=== PATIENT | male | born 1960 | race Two or more races ===

== ENCOUNTER 2017-11-25 13:06 | Emergency (ER) | payer MEDICAID ==
[~2017-11-25] VITALS: Ht 180.3 cm; Wt 94.6 kg
[2017-11-25 14:12] LABS: BASOPHILS % (AUTO) 0.3 % (0-1); EOSINOPHILS # (AUTO) 0.3 X10'3 (0-0.9); EOSINOPHILS % (AUTO) 3.8 % (0-6); HEMATOCRIT 49.5 % (42.0-52.0); HEMOGLOBIN 16.4 g/dl (14.0-17.9); LYMPHOCYTES # (AUTO) 2.6 X10'3 (1.1-4.8); LYMPHOCYTES % (AUTO) 32.8 % (21-51); MEAN CORPUSCULAR HEMOGLOBIN 29.8 PG (27.0-31.0); MEAN CORPUSCULAR HGB CONC 33.1 % (33.0-36.5); MEAN CORPUSCULAR VOLUME 90.1 FL (78-98); MEAN PLATELET VOLUME 7.6 FL (7.4-10.4); MONOCYTES # (AUTO) 0.7 X10'3 (0-0.9); MONOCYTES % (AUTO) 8.9 % (2-12); NEUTROPHILS # (AUTO) 4.3 X10'3 (1.8-7.7); NEUTROPHILS % (AUTO) 54.2 % (42-75); PLATELET COUNT 303 X10'3 (140-440); RED BLOOD COUNT 5.49 X10'6 (4.70-6.10); WHITE BLOOD COUNT 7.9 X10'3 (4.5-11.0)
[2017-11-25 14:29] LABS: ALANINE AMINOTRANSFERASE 49 U/L (12-78); ALKALINE PHOSPHATASE 72 IU/L (46-116); ANION GAP 12 (8-16); ASPARTATE AMINO TRANSFERASE 22 U/L (10-37); BILIRUBIN,TOTAL 0.4 MG/DL (0.1-1.0); BLOOD UREA NITROGEN 13 MG/DL (7-18); BUN/CREATININE RATIO 14.1 (5.4-32.0); CALCIUM 9.3 MG/DL (8.5-10.1); CHLORIDE 104 MMOL/L (99-107); CREATININE 0.92 MG/DL (0.60-1.10); GLUCOSE 157 MG/DL (70-104); POTASSIUM 3.9 MMOL/L (3.5-5.1); SODIUM 139 MMOL/L (135-145); TOTAL CARBON DIOXIDE 23.5 MMOL/L (24-32); eGFR 85 ML/MIN
[2017-11-25] MEDS ORDERED: ONDA4TAB9 SL (16:02)
[2017-11-25] MEDS ORDERED: normal saline 1000ML IV soln IVB ONE (16:05)
[2017-11-25] MEDS ORDERED: ondansetron/PF 4mg/2ml inj IV ONE (16:05)
[2017-11-25] MEDS ORDERED: ondansetron 4mg rapidly disintigrating tab PO ONE (16:30)
[2017-11-25 17:24] VITALS: BP 137/92
== END 2017-11-25 17:26 | disposition home or self-care (01) ==
LOC: ER 13:06
DX: A08.4 Viral intestinal infection, unspecified (principal); E86.0 Dehydration; E11.9 Type 2 diabetes mellitus without complications; R10.84 Generalized abdominal pain
CPT/HCPCS: 36415; 80053; 82948; 85025; 96360; 99284; J7030

== ENCOUNTER 2018-05-20 14:34 | Emergency (ER) | payer MEDICAID ==
[~2018-05-20] VITALS: Ht 180.3 cm; Wt 97.0 kg
[2018-05-20 15:26] LABS: BASOPHILS # (AUTO) 0.1 X10'3 (0-0.2); BASOPHILS % (AUTO) 0.6 % (0-1); EOSINOPHILS # (AUTO) 0.5 X10'3 (0-0.9); HEMOGLOBIN 15.4 g/dl (14.0-17.9); LYMPHOCYTES # (AUTO) 3.5 X10'3 (1.1-4.8); MEAN CORPUSCULAR HEMOGLOBIN 31.3 PG (27.0-31.0); MEAN CORPUSCULAR VOLUME 89.5 FL (78-98); MEAN PLATELET VOLUME 7.7 FL (7.4-10.4); MONOCYTES # (AUTO) 0.7 X10'3 (0-0.9); NEUTROPHILS # (AUTO) 3.9 X10'3 (1.8-7.7); NEUTROPHILS % (AUTO) 45.4 % (42-75); PLATELET COUNT 273 X10'3 (140-440); RED BLOOD COUNT 4.92 X10'6 (4.70-6.10); RED CELL DISTRIBUTION WIDTH 12.7 % (11.5-14.5); WHITE BLOOD COUNT 8.7 X10'3 (4.5-11.0)
[2018-05-20 15:31] LABS: PARTIAL THROMBOPLASTIN TIME 25 SECONDS (22-32); PROTHROMBIN TIME 10.3 SECONDS (9.0-12.0)
[2018-05-20 15:32] LABS: ALANINE AMINOTRANSFERASE 26 U/L (12-78); ALBUMIN 3.6 G/DL (3.4-5.0); ALBUMIN/GLOBULIN RATIO 1.1 (1.1-1.5); ALKALINE PHOSPHATASE 72 IU/L (46-116); ANION GAP 9 (8-16); ASPARTATE AMINO TRANSFERASE 13 U/L (10-37); BILIRUBIN,TOTAL 0.3 MG/DL (0.1-1.0); BLOOD UREA NITROGEN 24 MG/DL (7-18); BUN/CREATININE RATIO 22.9 (5.4-32.0); CALCIUM 8.5 MG/DL (8.5-10.1); CHLORIDE 105 MMOL/L (99-107); CREATININE 1.05 MG/DL (0.60-1.10); GLUCOSE 214 MG/DL (70-104); POTASSIUM 3.9 MMOL/L (3.5-5.1); SODIUM 139 MMOL/L (135-145); TOTAL CARBON DIOXIDE 25.3 MMOL/L (24-32); TOTAL PROTEIN 6.9 G/DL (6.4-8.2); eGFR 73 ML/MIN
[2018-05-20 16:02] VITALS: BP 116/70
== END 2018-05-20 16:42 | disposition home or self-care (01) ==
LOC: ER 14:34
DX: R07.89 Other chest pain (principal); F17.200 Nicotine dependence, unspecified, uncomplicated; E11.9 Type 2 diabetes mellitus without complications
CPT/HCPCS: 36415; 71045; 80053; 84484; 85025; 85610; 85730; 93005; 99285

== ENCOUNTER 2018-06-10 22:59 | Emergency (ER) | payer MEDICAID ==
[~2018-06-10] VITALS: Ht 180.3 cm; Wt 97.0 kg
[2018-06-10 23:33] LABS: BASOPHILS # (AUTO) 0.1 X10'3 (0-0.2); BASOPHILS % (AUTO) 0.5 % (0-1); EOSINOPHILS # (AUTO) 0.4 X10'3 (0-0.9); EOSINOPHILS % (AUTO) 3.5 % (0-6); HEMATOCRIT 44.5 % (42.0-52.0); LYMPHOCYTES # (AUTO) 1.5 X10'3 (1.1-4.8); LYMPHOCYTES % (AUTO) 12.2 % (21-51); MEAN CORPUSCULAR HEMOGLOBIN 30.1 PG (27.0-31.0); MEAN CORPUSCULAR HGB CONC 33.6 % (33.0-36.5); MEAN CORPUSCULAR VOLUME 89.6 FL (78-98); MEAN PLATELET VOLUME 7.4 FL (7.4-10.4); MONOCYTES # (AUTO) 0.6 X10'3 (0-0.9); MONOCYTES % (AUTO) 4.5 % (2-12); NEUTROPHILS # (AUTO) 9.9 X10'3 (1.8-7.7); NEUTROPHILS % (AUTO) 79.3 % (42-75); PLATELET COUNT 293 X10'3 (140-440); RED BLOOD COUNT 4.97 X10'6 (4.70-6.10); RED CELL DISTRIBUTION WIDTH 13.6 % (11.5-14.5); WHITE BLOOD COUNT 12.4 X10'3 (4.5-11.0)
[2018-06-10 23:47] LABS: ALANINE AMINOTRANSFERASE 39 U/L (12-78); ALBUMIN 3.6 G/DL (3.4-5.0); ALBUMIN/GLOBULIN RATIO 1.1 (1.1-1.5); ALKALINE PHOSPHATASE 78 IU/L (46-116); ANION GAP 9 (8-16); ASPARTATE AMINO TRANSFERASE 32 U/L (10-37); BILIRUBIN,TOTAL 0.4 MG/DL (0.1-1.0); BLOOD UREA NITROGEN 26 MG/DL (7-18); BUN/CREATININE RATIO 23.2 (5.4-32.0); CHLORIDE 104 MMOL/L (99-107); CREATININE 1.12 MG/DL (0.60-1.10); GLUCOSE 144 MG/DL (70-104); POTASSIUM 4.4 MMOL/L (3.5-5.1); SODIUM 139 MMOL/L (135-145); TOTAL CARBON DIOXIDE 25.8 MMOL/L (24-32); eGFR 68 ML/MIN
[2018-06-10 23:58] LABS: PARTIAL THROMBOPLASTIN TIME 26 SECONDS (22-32)
[2018-06-11] MEDS ORDERED: morphine 10mg/ml inj. IM ONE (00:50)
[2018-06-11] MEDS ORDERED: morphine 4 MG/ML inj SYRINge IM ONE (00:50)
[2018-06-11] MEDS ORDERED: ondansetron/PF 4mg/2ml inj IM ONE (00:50)
[2018-06-11] MEDS ORDERED: ondansetron/PF 4mg/2ml inj IV ONE (01:00)
[2018-06-11] MEDS ORDERED: morphine 4 MG/ML inj SYRINge IV ONE (01:00)
[2018-06-11 02:25] VITALS: BP 115/69
[2018-06-11 02:28] LABS: CLARITY,URINE CLEAR (Clear); COLOR,URINE YELLOW (Yellow); GLUCOSE, URINE NEGATIVE (Neg); KETONES,URINE NEGATIVE (Neg); LEUKOCYTE ESTERASE ,URINE NEGATIVE (Neg); NITRITES, URINE NEGATIVE (Neg); OCCULT BLOOD,URINE NEGATIVE (Neg); PH,URINE 5.5 (4.8-8.0); PROTEIN,URINE NEGATIVE (Neg); UROBILINOGEN,URINE 0.2 E.U/dL (0.2-1.0)
[2018-06-11 02:30] LABS: UA COLLECTION TYPE CLN CATCH MIDSTREAM
[2018-06-11] MEDS ORDERED: IBUP-1986 PO (02:52)
[2018-06-11] MEDS ORDERED: HYDR-4353 PO (02:52)
[2018-06-11] MEDS ORDERED: HYDROcodone/acetaminophen 10/325mg tab PO ONE (02:55)
== END 2018-06-11 03:13 | disposition home or self-care (01) ==
LOC: ER 23:00
DX: M54.5 Low back pain (principal); E11.9 Type 2 diabetes mellitus without complications; F17.200 Nicotine dependence, unspecified, uncomplicated; R07.89 Other chest pain; X50.0XXA Overexertion from strenuous movement or load, initial encounter; Y93.89 Activity, other specified; Y92.89 Other specified places as the place of occurrence of the external cause; Y99.8 Other external cause status
CPT/HCPCS: 36415; 71045; 80053; 81003; 84484; 85025; 85610; 85730; 93005; 96374; 96375; 99285; J2270; J2405

== ENCOUNTER 2018-11-02 20:29 | Emergency (ER) | payer MEDICAID ==
[~2018-11-02] VITALS: Ht 172.7 cm; Wt 104.0 kg
[~2018-11-02 20:29] MED LIST: IBUP-1986 PO
[2018-11-02 20:34] VITALS: BP 157/83
== END 2018-11-02 22:58 | disposition home or self-care (01) ==
LOC: ER 20:30
DX: R06.02 Shortness of breath (principal); R41.0 Disorientation, unspecified; E78.00 Pure hypercholesterolemia, unspecified; E11.9 Type 2 diabetes mellitus without complications
CPT/HCPCS: 71045; 82948; 93005; 99283

== ENCOUNTER 2019-08-09 03:11 | Emergency (ER) | payer MEDICAID ==
[~2019-08-09] VITALS: Ht 180.3 cm; Wt 97.7 kg
[2019-08-09 03:59] VITALS: BP 164/69
[2019-08-09 04:06] LABS: BASOPHILS # (AUTO) 0.1 X10'3 (0-0.2); BASOPHILS % (AUTO) 0.9 % (0-1); EOSINOPHILS # (AUTO) 0.7 X10'3 (0-0.9); EOSINOPHILS % (AUTO) 5.7 % (0-6); HEMATOCRIT 46.2 % (42.0-52.0); HEMOGLOBIN 15.6 g/dl (14.0-17.9); LYMPHOCYTES # (AUTO) 4.7 X10'3 (1.1-4.8); MEAN CORPUSCULAR HEMOGLOBIN 30.6 PG (27.0-31.0); MEAN CORPUSCULAR HGB CONC 33.7 g/dL (33.0-36.5); MEAN CORPUSCULAR VOLUME 90.7 FL (78-98); MEAN PLATELET VOLUME 7.6 FL (7.4-10.4); MONOCYTES # (AUTO) 0.9 X10'3 (0-0.9); MONOCYTES % (AUTO) 7.6 % (2-12); NEUTROPHILS # (AUTO) 5.6 X10'3 (1.8-7.7); NEUTROPHILS % (AUTO) 46.8 % (42-75); PLATELET COUNT 332 X10'3 (140-440); RED CELL DISTRIBUTION WIDTH 12.5 % (11.5-14.5); WHITE BLOOD COUNT 11.9 X10'3 (4.5-11.0)
[2019-08-09 04:16] LABS: ALANINE AMINOTRANSFERASE 31 U/L (12-78); ALBUMIN 3.9 G/DL (3.4-5.0); ALBUMIN/GLOBULIN RATIO 1.1 (1.1-1.5); ALKALINE PHOSPHATASE 86 IU/L (46-116); ANION GAP 10 (8-16); ASPARTATE AMINO TRANSFERASE 15 U/L (10-37); BILIRUBIN,TOTAL 0.2 MG/DL (0.1-1.0); BLOOD UREA NITROGEN 16 MG/DL (7-18); BUN/CREATININE RATIO 15.8 (5.4-32.0); CALCIUM 8.8 MG/DL (8.5-10.1); CHLORIDE 108 MMOL/L (99-107); CREATININE 1.01 MG/DL (0.60-1.10); GLUCOSE 133 MG/DL (70-104); LIPASE 390 U/L (73-393); PARTIAL THROMBOPLASTIN TIME 25 SECONDS (22-32); SODIUM 144 MMOL/L (135-145); TOTAL CARBON DIOXIDE 26.5 MMOL/L (24-32); TOTAL PROTEIN 7.6 G/DL (6.4-8.2); eGFR 76 ML/MIN
[2019-08-09] MEDS ORDERED: simethicone 125mg capsule PO SCH (04:40)
[2019-08-09 04:46] LABS: CLARITY,URINE CLEAR (Clear); COLOR,URINE YELLOW (Yellow); GLUCOSE, URINE NEGATIVE (Neg); KETONES,URINE NEGATIVE (Neg); LEUKOCYTE ESTERASE ,URINE NEGATIVE (Neg); NITRITES, URINE NEGATIVE (Neg); OCCULT BLOOD,URINE TRACE-INTACT (Neg); PH,URINE 6.5 (4.8-8.0); PROTEIN,URINE NEGATIVE (Neg); UROBILINOGEN,URINE 0.2 E.U/dL (0.2-1.0)
[2019-08-09 04:55] LABS: UA COLLECTION TYPE CLN CATCH MIDSTREAM
[2019-08-09 04:58] LABS: WBC,URINE NONE SEEN /HPF (0-4)
[2019-08-09 04:59] LABS: BACTERIA,URINE NONE SEEN /HPF (Neg); RBC,URINE 0-2 /HPF (0-2); SQUAMOUS EPITHELIAL CELL,UR FEW /LPF (FEW)
--- NOTE | 2019-08-09 05:17 | NUR ---
Patient's has been at the door and asking several staff for pain medication for her , "now!" I have spoke to the patient several times and apologized for the wait, but that the doctor needs to see him before giving him the, "pain killers" that she continues to ask for. I tried to explain to the patient's that his lab work was reassuring and that his vital signs were all normal. The patient continued to complain. Dr. Miramontes was interrupted and provided the patient's situation and description of his pain and she orders simethicone for now until she can personally evaluate him. Patient medicated with simethicone.
[2019-08-09] MEDS ORDERED: pantoprazole 40 MG vial IV ONE (05:40)
[2019-08-09] MEDS ORDERED: morphine 4 MG/ML inj SYRINge IV ONE ×2 (05:40→07:00)
[2019-08-09] MEDS ORDERED: normal saline 1000ML IV soln IVB ONE (05:40)
[2019-08-09] MEDS ORDERED: ondansetron/PF 4mg/2ml inj IV ONE (05:40)
[2019-08-09] MEDS ORDERED: iohexol 300mg/ml 100ml inj. ONE (05:45)
[2019-08-09] MEDS ORDERED: MESSAGE TO NURSING PO SCH (06:00)
[2019-08-09] MEDS ORDERED: LORazepam 2 mg/ml vial IV ONE (06:10)
[2019-08-09] MEDS ORDERED: HYDR-4383 PO (08:17)
[2019-08-10] MEDS ORDERED: METF500T PO (15:11)
[2019-08-10] MEDS ORDERED: PIOG15TA8 PO (15:12)
[2019-08-10] MEDS ORDERED: GLIM1TAB PO (15:12)
[2019-08-10] MEDS ORDERED: GLUC-193 (15:13)
[2019-08-10] MEDS ORDERED: SERT25TA PO (15:13)
[2019-08-10] MEDS ORDERED: ASPI81TA44 PO (15:14)
== END 2019-08-09 08:23 | disposition home or self-care (01) ==
LOC: ER 03:12
DX: R10.13 Epigastric pain (principal); R10.11 Right upper quadrant pain; E78.00 Pure hypercholesterolemia, unspecified; E11.9 Type 2 diabetes mellitus without complications; F17.200 Nicotine dependence, unspecified, uncomplicated
CPT/HCPCS: 36415; 71045; 74177; 80053; 81001; 83690; 84484; 85025; 85610; 85730; 93005; 96374; 96375; 96376; 99284; C9113; J2060; J2270; J2405; J7030; Q9967

== ENCOUNTER 2019-08-10 09:37 | Inpatient (IN) | payer MEDICAID ==
[~2019-08-10] VITALS: Ht 180.3 cm; Wt 97.7 kg
[2019-08-10] VITALS (14 sets, daily range): BP systolic 126–143; BP diastolic 72–83
[~2019-08-10 09:37] MED LIST changes: +HYDR-4383 PO
[2019-08-10 10:27] LABS: BASOPHILS # (AUTO) 0.1 X10'3 (0-0.2); BASOPHILS % (AUTO) 0.9 % (0-1); EOSINOPHILS # (AUTO) 0.1 X10'3 (0-0.9); EOSINOPHILS % (AUTO) 0.4 % (0-6); HEMOGLOBIN 15.6 g/dl (14.0-17.9); LYMPHOCYTES # (AUTO) 2.4 X10'3 (1.1-4.8); LYMPHOCYTES % (AUTO) 14.1 % (21-51); MEAN CORPUSCULAR HEMOGLOBIN 30.4 PG (27.0-31.0); MEAN CORPUSCULAR HGB CONC 33.9 g/dL (33.0-36.5); MEAN CORPUSCULAR VOLUME 89.6 FL (78-98); MEAN PLATELET VOLUME 7.4 FL (7.4-10.4); MONOCYTES # (AUTO) 1.4 X10'3 (0-0.9); MONOCYTES % (AUTO) 8.1 % (2-12); NEUTROPHILS # (AUTO) 13.2 X10'3 (1.8-7.7); NEUTROPHILS % (AUTO) 76.5 % (42-75); PLATELET COUNT 303 X10'3 (140-440); RED BLOOD COUNT 5.14 X10'6 (4.70-6.10); RED CELL DISTRIBUTION WIDTH 12.8 % (11.5-14.5); WHITE BLOOD COUNT 17.2 X10'3 (4.5-11.0)
[2019-08-10 10:28] LABS: CLARITY,URINE SLIGHTLY CLOUDY (Clear); GLUCOSE, URINE 250 mg/dl (Neg); KETONES,URINE 15 mg/dl (Neg); LEUKOCYTE ESTERASE ,URINE NEGATIVE (Neg); NITRITES, URINE NEGATIVE (Neg); OCCULT BLOOD,URINE LARGE (Neg); PH,URINE 5.5 (4.8-8.0); PROTEIN,URINE 100 mg/dl (Neg)
[2019-08-10 10:38] LABS: ALANINE AMINOTRANSFERASE 80 U/L (12-78); ALBUMIN 3.5 G/DL (3.4-5.0); ALBUMIN/GLOBULIN RATIO 0.9 (1.1-1.5); ALKALINE PHOSPHATASE 81 IU/L (46-116); ANION GAP 12 (8-16); ASPARTATE AMINO TRANSFERASE 59 U/L (10-37); BILIRUBIN,TOTAL 1.1 MG/DL (0.1-1.0); BLOOD UREA NITROGEN 11 MG/DL (7-18); BUN/CREATININE RATIO 11.5 (5.4-32.0); CALCIUM 8.7 MG/DL (8.5-10.1); CHLORIDE 104 MMOL/L (99-107); CREATININE 0.96 MG/DL (0.60-1.10); GLUCOSE 234 MG/DL (70-104); LIPASE 135 U/L (73-393); POTASSIUM 3.7 MMOL/L (3.5-5.1); SODIUM 138 MMOL/L (135-145); TOTAL PROTEIN 7.6 G/DL (6.4-8.2); eGFR 80 ML/MIN
[2019-08-10 10:41] LABS: COLOR,URINE DARK YELLOW (Yellow); UA COLLECTION TYPE CLN CATCH MIDSTREAM
[2019-08-10 10:49] LABS: WBC,URINE 0-4 /HPF (0-4)
[2019-08-10 10:50] LABS: BACTERIA,URINE FEW /HPF (Neg); MUCUS STRANDS MANY /LPF (Neg); SQUAMOUS EPITHELIAL CELL,UR FEW /LPF (FEW)
[2019-08-10] MEDS ORDERED: morphine 4 MG/ML inj SYRINge IV PRN ×4 (11:55→14:45)
[2019-08-10] MEDS ORDERED: ondansetron/PF 4mg/2ml inj IV ONE ×3 (11:55)
[2019-08-10] MEDS ORDERED: normal saline 1000ML IV soln IVB ONE ×3 (11:55)
[2019-08-10] MEDS: morphine 4 MG/ML inj SYRINge IV PRN ×2 (12:09→13:50)
--- NOTE | 2019-08-10 12:37 | NUR ---
ABDOMINAL ULTRASOUND COMPLETED
[2019-08-10] MEDS ORDERED: piperacillin/tazo 3.375gm/50ml 50 ML IV ONE (12:45)
[2019-08-10 13:46] LABS: CLARITY,URINE CLEAR (Clear); COLOR,URINE YELLOW (Yellow); GLUCOSE, URINE 500 mg/dl (Neg); KETONES,URINE NEGATIVE (Neg); LEUKOCYTE ESTERASE ,URINE NEGATIVE (Neg); NITRITES, URINE NEGATIVE (Neg); OCCULT BLOOD,URINE MODERATE (Neg); PROTEIN,URINE NEGATIVE (Neg)
[2019-08-10 13:47] LABS: UA COLLECTION TYPE URINAL
[2019-08-10] MEDS ORDERED: ondansetron/PF 4mg/2ml inj IV PRN ×2 (13:50→14:45)
[2019-08-10] MEDS ORDERED: magnesium 4gm in 100ml NS 100 ML IV PRN (13:50)
[2019-08-10] MEDS ORDERED: potassium Cl 20 mEq SR tablet PO PRN ×2 (13:50)
[2019-08-10] MEDS ORDERED: magnesium Cl slow-release 64mg tablet PO PRN (13:50)
[2019-08-10] MEDS ORDERED: potassium CL 10mEq/100ml bag 100 ML IV PRN ×2 (13:50)
[2019-08-10] MEDS ORDERED: magnesium 2GM in 50ml NS 50 ML IV PRN (13:50)
[2019-08-10 13:51] LABS: BACTERIA,URINE FEW /HPF (Neg); SQUAMOUS EPITHELIAL CELL,UR FEW /LPF (FEW); WBC,URINE 0-4 /HPF (0-4)
[2019-08-10] MEDS ORDERED: ringers solution, lacted 1,000 ML IV SCH (14:41)
[2019-08-10] MEDS ORDERED: ringers solution, lacted 1,000 ML IV ONE (14:41)
[2019-08-10] MEDS ORDERED: labetalol 20mg/4ml (5mg/ml) syringe IV PRN (14:45)
[2019-08-10] MEDS ORDERED: hydrALAZINE 20mg/ml inj. IV PRN (14:45)
[2019-08-10] MEDS ORDERED: fentaNYL/PF 50MCG/1 ML 2ML syringe IV PRN ×2 (14:45)
--- NOTE | 2019-08-10 14:55 | NUR ---
patient cant remember his medications: takes 3 meds for diabetes, did not his baby asa today
[2019-08-10] MEDS: levoFLOXACIN-Levaquin 500mg/D5 100 ML IV SCH (14:57)
--- NOTE | 2019-08-10 14:58 | NUR ---
right ac 20 gauge iv with ns at tko and levlaurauin running
--- NOTE | 2019-08-10 14:59 | NUR ---
LAST FOOD/DRINK 0800 TODAY: BITE OF CAKE AND A FEW SIPS OF TEA, NPO SINCE THEN
[2019-08-10] MEDS: normal saline 1000ml 1,000 ML IV SCH ×2 (15:04→22:37)
--- NOTE | 2019-08-10 15:07 | NUR ---
CT SCAN, ULTRASOUND, AND EKG DONE ATTEMPTED TO CALL REPORT
[2019-08-10] MEDS ORDERED: fentaNYL/PF 50MCG/1 ML 2ML syringe ONE (15:08)
[2019-08-10] MEDS ORDERED: midazolam 2 mg/2 ml injection ONE (15:08)
--- NOTE | 2019-08-10 15:08 | NUR ---
PREVIOUS NOTE WRIITEN BY JACINTO HANSEN ATTEMPTED TO CALL [phone], NO ANSWER FOR REPORT PATIENT TO OR WITH OR TECH OFF MONITOR DR BARONE WAS IN ROOM DISCUSSING SURGERY WITH PATIENT AND HIS
[2019-08-10] MEDS ORDERED: METF500T PO (15:11)
[2019-08-10] MEDS ORDERED: propofol inj 20 ML IV ONE (15:11)
[2019-08-10] MEDS ORDERED: GLIM1TAB PO (15:12)
[2019-08-10] MEDS ORDERED: PIOG15TA8 PO (15:12)
[2019-08-10] MEDS ORDERED: SERT25TA PO (15:13)
[2019-08-10] MEDS ORDERED: GLUC-193 (15:13)
[2019-08-10] MEDS ORDERED: ASPI81TA44 PO (15:14)
[2019-08-10] MEDS ORDERED: ceFAZolin 1000mg inj ONE (15:19)
[2019-08-10] MEDS ORDERED: BUPIVAcaine/PF 2.5 mg/ml (0.25%) 30ml vial ONE (15:19)
[2019-08-10] MEDS ORDERED: sevoflurane 250ml liquid IH ONE (15:20)
[2019-08-10] MEDS ORDERED: hydrALAZINE 20mg/ml inj. IV ONE (15:20)
[2019-08-10] MEDS ORDERED: glycopyrrolate 0.2mg/ml inj ONE (16:11)
[2019-08-10] MEDS ORDERED: ondansetron/PF 4mg/2ml inj ONE (16:11)
[2019-08-10] MEDS ORDERED: dexamethasone sod phosphate 4mg/ml inj. ONE (16:11)
[2019-08-10] MEDS ORDERED: neostigmine methylsulfate 1 MG/ML 10ml vial ONE (16:11)
[2019-08-10] MEDS ORDERED: rocuronium 10mg/ml inj IV ONE (16:11)
[2019-08-10] MEDS ORDERED: labetalol 20mg/4ml (5mg/ml) syringe IV ONE (16:11)
--- NOTE | 2019-08-10 16:37 | NUR ---
Received from OR via , accompanied by Anesthesiologist DR BRAN and report given by Anesthesiolgist. AWAKENS TO VOICE. VITALS STABLE. DRESSINGS DI. DONA PAIN. ABD SOFT. JOSSELINE WITH SM AMNT SERO SANG FLUID IN THE BULB.
--- NOTE | 2019-08-10 17:27 | NUR ---
Report called to receiving nurse. Transferred via BED Belongings . Special Issues communicated to receiving nurse.AWAKE AND ORIENTED. VITALS STABLE. DRESSING DI. DONA PAIN. TO SURGICAL RM 360A AT THIS TIME.
[2019-08-10] MEDS: morphine 2 MG/ML inj. syringe IV PRN ×2 (18:32→23:00)
[2019-08-10 19:06] LABS: ISTAT ANION GAP 9 (8-12); ISTAT BUN 9 mg/dL (6-19); ISTAT CL 104 mmol/L (99-107); ISTAT CREATININE 0.6 mg/dL (0.8-1.3); ISTAT GLUCOSE 144 mg/dL (70-104); ISTAT HGB 15.3 g/dl (14.0-18.0); ISTAT Hct 45 %PCV (42-52); ISTAT IONIZED CALCIUM 1.18 mmol/L (1.03-1.32); ISTAT K 4.1 mmol/L (3.5-5.1); ISTAT NA 139 mmol/L (135-145); ISTAT TOTAL CO2 26 mmol/L (24-32); ISTAT eGFR > 90 ML/MIN
--- NOTE | 2019-08-10 19:36 | NUR ---
Problems reprioritized. Patient report given, questions answered & plan of care reviewed with JACINTO PAZ.
[2019-08-10] MEDS: K and/or MAG REPLACEMENT MC SCH (20:00)
--- NOTE | 2019-08-10 22:52 | NUR ---
Pt up an walked approx 50 ft. Addendum: 08/10/19 at 2252 by Amanda Sow RN Amended: Links added.
[2019-08-11] VITALS: BP 130/68
[2019-08-11] MEDS: piperacillin/tazo 3.375gm/50ml 50 ML IV SCH ×4 (00:04→23:38)
[2019-08-11 04:00] VITALS: BP 113/67
[2019-08-11] MEDS: morphine 2 MG/ML inj. syringe IV PRN (04:45)
[2019-08-11 05:13] LABS: BASOPHILS % (AUTO) 0.2 % (0-1); EOSINOPHILS % (AUTO) 0.2 % (0-6); HEMATOCRIT 39.5 % (42.0-52.0); HEMOGLOBIN 13.5 g/dl (14.0-17.9); LYMPHOCYTES # (AUTO) 1.1 X10'3 (1.1-4.8); LYMPHOCYTES % (AUTO) 7.6 % (21-51); MEAN CORPUSCULAR HEMOGLOBIN 30.8 PG (27.0-31.0); MEAN CORPUSCULAR HGB CONC 34.1 g/dL (33.0-36.5); MEAN CORPUSCULAR VOLUME 90.4 FL (78-98); MONOCYTES # (AUTO) 0.7 X10'3 (0-0.9); NEUTROPHILS # (AUTO) 12.5 X10'3 (1.8-7.7); PLATELET COUNT 284 X10'3 (140-440); RED BLOOD COUNT 4.37 X10'6 (4.70-6.10); RED CELL DISTRIBUTION WIDTH 12.6 % (11.5-14.5); WHITE BLOOD COUNT 14.4 X10'3 (4.5-11.0)
[2019-08-11 05:19] LABS: ALBUMIN 2.9 G/DL (3.4-5.0); ANION GAP 7 (8-16); BLOOD UREA NITROGEN 13 MG/DL (7-18); BUN/CREATININE RATIO 13.5 (5.4-32.0); CALCIUM 8.6 MG/DL (8.5-10.1); CHLORIDE 107 MMOL/L (99-107); CREATININE 0.96 MG/DL (0.60-1.10); GLUCOSE 246 MG/DL (70-104); POTASSIUM 4.2 MMOL/L (3.5-5.1); SODIUM 138 MMOL/L (135-145); TOTAL CARBON DIOXIDE 23.6 MMOL/L (24-32); eGFR 80 ML/MIN
--- NOTE | 2019-08-11 07:02 | NUR ---
Patient in room [facility]. I have received report from Amanda CASEY and had the opportunity to ask questions and assume patient care.
[2019-08-11] MEDS: K and/or MAG REPLACEMENT MC SCH ×2 (08:00→20:00)
[2019-08-11] MEDS: levoFLOXACIN-Levaquin 500mg/D5 100 ML IV SCH (08:15)
[2019-08-11] MEDS: HYDROcodone/acetaminophen 10/325mg tab PO PRN ×3 (09:37→21:30)
[2019-08-11 10:00] VITALS: BP 102/55
[2019-08-11] MEDS ORDERED: pneumococcal 23-VAL P-sac vacc 25 mcg/0.5ml vial IMVAC ONE (10:00)
[2019-08-11] MEDS ORDERED: FLU VACC QS2019-20 36MOS UP/PF 60 MCG/0.5 ML SYRINGE IMVAC ONE (10:00)
[2019-08-11] MEDS ORDERED: dextrose ORAL solution 15 GM/59 ML bottle PO PRN ×2 (10:35)
[2019-08-11] MEDS ORDERED: dextrose 50%-water 50ml dispensing syringe IV PRN ×2 (10:35)
[2019-08-11] MEDS ORDERED: MESSAGE TO PHARMACY PO ONE (10:35)
[2019-08-11] MEDS ORDERED: glucagon, human recombinant 1mg kit SUBCUT PRN (10:35)
[2019-08-11] MEDS: aspirin 81mg tablet.DR PO SCH (10:45)
[2019-08-11] MEDS: sertraline 50mg tablet PO SCH (10:46)
[2019-08-11 11:00] VITALS: BP 102/55
[2019-08-11] MEDS: insulin Lispro (HumaLOG) vial - multi-dose SQ SCH (13:36)
[2019-08-11] MEDS ORDERED: glimepiride 1 MG tablet PO SCH (17:30)
[2019-08-11 18:00] VITALS: BP 127/70
--- NOTE | 2019-08-11 18:27 | NUR ---
All cares given. Family in room assisting with care. Lap site CDI. JOSSELINE putout 40 ml serosanguineous. Given [place] x2. Met protocol level 2 for BS of 210. Report given to Moon.
--- NOTE | 2019-08-11 18:40 | NUR ---
Patient in room [facility]. I have received report from Dona RN and JACINTO George and had the opportunity to ask questions and assume patient care.
[2019-08-11] MEDS: insulin glargine (Lantus) pen - multi-dose SQ SCH (21:29)
[2019-08-11] MEDS: lactobacillus rhamnosus 10,000 MMU CELLS/CAPSULE PO SCH (21:30)
[2019-08-11] MEDS: normal saline 1000ml 1,000 ML IV SCH (21:40)
[2019-08-12 00:30] VITALS: BP 120/58
[2019-08-12 05:54] LABS: BASOPHILS % (AUTO) 0.3 % (0-1); EOSINOPHILS # (AUTO) 0.2 X10'3 (0-0.9); EOSINOPHILS % (AUTO) 1.6 % (0-6); HEMATOCRIT 40.3 % (42.0-52.0); HEMOGLOBIN 13.6 g/dl (14.0-17.9); LYMPHOCYTES # (AUTO) 3.3 X10'3 (1.1-4.8); LYMPHOCYTES % (AUTO) 24.7 % (21-51); MEAN CORPUSCULAR HEMOGLOBIN 30.5 PG (27.0-31.0); MEAN CORPUSCULAR HGB CONC 33.8 g/dL (33.0-36.5); MONOCYTES # (AUTO) 0.9 X10'3 (0-0.9); MONOCYTES % (AUTO) 6.4 % (2-12); NEUTROPHILS # (AUTO) 8.9 X10'3 (1.8-7.7); PLATELET COUNT 271 X10'3 (140-440); RED BLOOD COUNT 4.48 X10'6 (4.70-6.10); RED CELL DISTRIBUTION WIDTH 12.8 % (11.5-14.5); WHITE BLOOD COUNT 13.3 X10'3 (4.5-11.0)
--- NOTE | 2019-08-12 06:00 | NUR ---
Patient in room [facility]. I have received report from JACINTO Mustafa and had the opportunity to ask questions and assume patient care.
--- NOTE | 2019-08-12 06:20 | NUR ---
Patient in room [facility]. I have received report from KEHINDE CASEY and had the opportunity to ask questions and assume patient care.
[2019-08-12 06:21] LABS: ALBUMIN 2.9 G/DL (3.4-5.0); ANION GAP 8 (8-16); BLOOD UREA NITROGEN 17 MG/DL (7-18); BUN/CREATININE RATIO 16.8 (5.4-32.0); CALCIUM 8.6 MG/DL (8.5-10.1); CHLORIDE 107 MMOL/L (99-107); CREATININE 1.01 MG/DL (0.60-1.10); GLUCOSE 136 MG/DL (70-104); POTASSIUM 4.1 MMOL/L (3.5-5.1); SODIUM 141 MMOL/L (135-145); TOTAL CARBON DIOXIDE 26.3 MMOL/L (24-32); eGFR 76 ML/MIN
--- NOTE | 2019-08-12 06:39 | NUR ---
Problems reprioritized. Patient report given, questions answered & plan of care reviewed with JACINTO Guzman and JACINTO Arboleda.
[2019-08-12 07:00] VITALS: BP 117/64
[2019-08-12] MEDS: K and/or MAG REPLACEMENT MC SCH ×2 (08:00→19:33)
[2019-08-12] MEDS: piperacillin/tazo 3.375gm/50ml 50 ML IV SCH ×3 (09:46→23:03)
[2019-08-12] MEDS: sertraline 50mg tablet PO SCH (09:48)
[2019-08-12] MEDS: lactobacillus rhamnosus 10,000 MMU CELLS/CAPSULE PO SCH ×2 (09:48→20:36)
[2019-08-12] MEDS: aspirin 81mg tablet.DR PO SCH (09:48)
[2019-08-12] MEDS: HYDROcodone/acetaminophen 10/325mg tab PO PRN ×2 (09:49→23:03)
[2019-08-12] MEDS: insulin Lispro (HumaLOG) vial - multi-dose SQ SCH (10:04)
[2019-08-12 11:00] VITALS: BP 102/52
[2019-08-12] MEDS: levoFLOXACIN-Levaquin 500mg/D5 100 ML IV SCH (12:39)
--- NOTE | 2019-08-12 16:37 | NUR ---
Pt with A1c 8.3. Attempted bedside visit however pt attempting to rest. Written DM education with referral to outpatient DM class and RD contact information will be mailed to home address found in EMR. Pt on CHO controlled vegetarian diet with poor PO intake. Per RN patient not eating well d/t food preferences. Pt mostly vegetarian and doesn't eat beef, pork, chicken, or turkey however will eat fish, eggs, and dairy. Vegetarian diet order was added after lunch time and RN reports pt ate a tuna sandwich. No nutrition intervention at this time. Will continue to follow. Addendum: 08/12/19 at [address] Amended: Links added.
[2019-08-12 18:00] VITALS: BP 117/62
--- NOTE | 2019-08-12 18:43 | NUR ---
Problems reprioritized. Patient report given, questions answered & plan of care reviewed with KEHINDE CASEY .
[2019-08-12] MEDS: insulin glargine (Lantus) pen - multi-dose SQ SCH (21:00)
[2019-08-13 00:15] VITALS: BP 112/53
[2019-08-13 06:14] LABS: ALBUMIN 2.9 G/DL (3.4-5.0); ANION GAP 6 (8-16); BLOOD UREA NITROGEN 15 MG/DL (7-18); CALCIUM 8.9 MG/DL (8.5-10.1); CHLORIDE 106 MMOL/L (99-107); CREATININE 0.88 MG/DL (0.60-1.10); GLUCOSE 133 MG/DL (70-104); SODIUM 138 MMOL/L (135-145); TOTAL CARBON DIOXIDE 26.5 MMOL/L (24-32); eGFR 89 ML/MIN
[2019-08-13 06:20] LABS: BASOPHILS # (AUTO) 0.1 X10'3 (0-0.2); BASOPHILS % (AUTO) 0.7 % (0-1); EOSINOPHILS # (AUTO) 0.5 X10'3 (0-0.9); EOSINOPHILS % (AUTO) 5.8 % (0-6); HEMATOCRIT 40.9 % (42.0-52.0); HEMOGLOBIN 14.2 g/dl (14.0-17.9); LYMPHOCYTES # (AUTO) 3.7 X10'3 (1.1-4.8); LYMPHOCYTES % (AUTO) 42.1 % (21-51); MEAN CORPUSCULAR HGB CONC 34.7 g/dL (33.0-36.5); MEAN CORPUSCULAR VOLUME 89.2 FL (78-98); MEAN PLATELET VOLUME 7.9 FL (7.4-10.4); MONOCYTES # (AUTO) 0.6 X10'3 (0-0.9); MONOCYTES % (AUTO) 6.2 % (2-12); NEUTROPHILS % (AUTO) 45.2 % (42-75); PLATELET COUNT 324 X10'3 (140-440); RED BLOOD COUNT 4.59 X10'6 (4.70-6.10); RED CELL DISTRIBUTION WIDTH 12.8 % (11.5-14.5); WHITE BLOOD COUNT 8.9 X10'3 (4.5-11.0)
--- NOTE | 2019-08-13 06:39 | NUR ---
Problems reprioritized. Patient report given, questions answered & plan of care reviewed with JACINTO Tam.
--- NOTE | 2019-08-13 07:03 | NUR ---
Patient in room [facility]. I have received report from JADE CASEY and had the opportunity to ask questions and assume patient care.
[2019-08-13 07:21] VITALS: BP 119/67
[2019-08-13] MEDS: K and/or MAG REPLACEMENT MC SCH (08:00)
[2019-08-13] MEDS: aspirin 81mg tablet.DR PO SCH (08:03)
[2019-08-13] MEDS: sertraline 50mg tablet PO SCH (08:03)
[2019-08-13] MEDS: lactobacillus rhamnosus 10,000 MMU CELLS/CAPSULE PO SCH (08:04)
[2019-08-13] MEDS: piperacillin/tazo 3.375gm/50ml 50 ML IV SCH (08:04)
[2019-08-13] MEDS: insulin Lispro (HumaLOG) vial - multi-dose SQ SCH (09:48)
[2019-08-13 11:00] VITALS: BP 133/79
[2019-08-13] MEDS ORDERED: levoFLOXACIN 500mg tablet PO SCH (11:00)
[2019-08-13] MEDS ORDERED: LEVO500T89 PO (11:44)
[2019-08-13] MEDS: HYDROcodone/acetaminophen 10/325mg tab PO PRN (12:02)
--- NOTE | 2019-08-13 13:45 | NUR ---
Patient discharged today teaching done with family in the room. Patient teaching was verbal. Patient was educated on new medication and was educated on follow up and with MD. Patient stated they left with all of there belonging. The IV was taken out at the time of discharge minimal bleeding, canula whole and intact upon discharge. Patient walked to lobby with patient health care marketing specialist and family at discharge.
== END 2019-08-13 13:47 | disposition home or self-care (01) | DRG 263 ==
LOC: ER 09:39 → ED HOLD 13:47 → SUR 3N 17:25
PROVIDERS: ADMIT Internal Medicine; ATTEND Internal Medicine
PROC: 0FN44ZZ Release Gallbladder, Percutaneous Endoscopic Approach (ICD-10-PCS; 2019-08-10)
PROC: 0FT44ZZ Resection of Gallbladder, Percutaneous Endoscopic Approach (ICD-10-PCS; principal; 2019-08-10 15:20)
PROC: 3E02340 Introduction of Influenza Vaccine into Muscle, Percutaneous Approach (ICD-10-PCS; 2019-08-11)
DX: K80.10 Calculus of gallbladder with chronic cholecystitis without obstruction (principal); E11.9 Type 2 diabetes mellitus without complications; K66.0 Peritoneal adhesions (postprocedural) (postinfection); E78.00 Pure hypercholesterolemia, unspecified; F17.210 Nicotine dependence, cigarettes, uncomplicated; F32.9 Major depressive disorder, single episode, unspecified; E78.5 Hyperlipidemia, unspecified; Z23 Encounter for immunization; Z71.6 Tobacco abuse counseling
CPT/HCPCS: 36415; 74176; 76700; 80047; 80048; 80053; 81001; 82948; 83036; 83690; 83735; 85025; 86885; 86900; 86901; 87081; 93005; A4215; A4618; A6402; A7000; G0378; J0360; J0690; J1100; J1815; J1956; J2250; J2270; J2405; J2543; J2704; J2710; J3010; J3490; J7030; J7120; Q2037

== ENCOUNTER 2020-03-13 16:32 | Emergency (ER) | payer MEDICAID ==
[~2020-03-13] VITALS: Ht 180.3 cm; Wt 90.0 kg
[~2020-03-13 16:32] MED LIST changes: +ASPI81TA44 PO; +GLIM1TAB PO; +GLUC-193; -HYDR-4383 PO; -IBUP-1986 PO; +LEVO500T89 PO; +METF500T PO; +PIOG15TA8 PO; +SERT25TA PO
[2020-03-13 17:39] LABS: BASOPHILS # (AUTO) 0.1 X10'3 (0-0.2); BASOPHILS % (AUTO) 0.8 % (0-1); EOSINOPHILS # (AUTO) 0.4 X10'3 (0-0.9); HEMOGLOBIN 15.5 g/dl (14.0-17.9); LYMPHOCYTES # (AUTO) 3.9 X10'3 (1.1-4.8); MEAN CORPUSCULAR HEMOGLOBIN 30.9 PG (27.0-31.0); MEAN CORPUSCULAR HGB CONC 33.7 g/dL (33.0-36.5); MEAN CORPUSCULAR VOLUME 91.7 FL (78-98); MEAN PLATELET VOLUME 7.3 FL (7.4-10.4); MONOCYTES # (AUTO) 0.7 X10'3 (0-0.9); MONOCYTES % (AUTO) 7.2 % (2-12); NEUTROPHILS # (AUTO) 5.1 X10'3 (1.8-7.7); PLATELET COUNT 314 X10'3 (140-440); RED BLOOD COUNT 5.02 X10'6 (4.70-6.10); RED CELL DISTRIBUTION WIDTH 13.4 % (11.5-14.5); WHITE BLOOD COUNT 10.2 X10'3 (4.5-11.0)
[2020-03-13 17:39] LABS: CLARITY,URINE TURBID (Clear); COLOR,URINE YELLOW (Yellow); GLUCOSE, URINE NEGATIVE (Neg); KETONES,URINE NEGATIVE (Neg); LEUKOCYTE ESTERASE ,URINE NEGATIVE (Neg); NITRITES, URINE NEGATIVE (Neg); OCCULT BLOOD,URINE LARGE (Neg); PH,URINE 5.5 (4.8-8.0); PROTEIN,URINE 30 mg/dl (Neg); UA COLLECTION TYPE VOIDED
[2020-03-13 17:53] LABS: ALANINE AMINOTRANSFERASE 46 U/L (12-78); ALBUMIN 4.4 G/DL (3.4-5.0); ALBUMIN/GLOBULIN RATIO 1.1 (1.1-1.5); ALKALINE PHOSPHATASE 79 IU/L (46-116); ANION GAP 7 (8-16); ASPARTATE AMINO TRANSFERASE 29 U/L (10-37); BILIRUBIN,TOTAL 0.5 MG/DL (0.1-1.0); BLOOD UREA NITROGEN 17 MG/DL (7-18); BUN/CREATININE RATIO 15.9 (5.4-32.0); CALCIUM 9.3 MG/DL (8.5-10.1); CHLORIDE 103 MMOL/L (99-107); CREATININE 1.07 MG/DL (0.60-1.10); GLUCOSE 125 MG/DL (70-104); LIPASE 245 U/L (73-393); POTASSIUM 3.9 MMOL/L (3.5-5.1); SODIUM 138 MMOL/L (135-145); TOTAL CARBON DIOXIDE 27.9 MMOL/L (24-32); TOTAL PROTEIN 8.3 G/DL (6.4-8.2); eGFR 71 ML/MIN
[2020-03-13 18:00] LABS: MUCUS STRANDS FEW /LPF (Neg); SQUAMOUS EPITHELIAL CELL,UR FEW /LPF (FEW)
[2020-03-13 18:01] LABS: AMORPHOUS URATES 2+
[2020-03-13 18:02] LABS: BACTERIA,URINE FEW /HPF (Neg); RBC,URINE 0-2 /HPF (0-2); WBC,URINE 0-4 /HPF (0-4)
[2020-03-13] MEDS ORDERED: ketorolac tromethamine 15mg/ml inj. IM ONE (18:05)
--- NOTE | 2020-03-13 19:03 | NUR ---
PT IS BACK FROM [place]
[2020-03-13] MEDS ORDERED: HYDR-3965 PO (19:40)
[2020-03-13] MEDS ORDERED: IBUP-1985 PO (19:40)
[2020-03-13] MEDS ORDERED: FLO0.4C PO (19:41)
[2020-03-13 20:00] VITALS: BP 140/85
== END 2020-03-13 20:04 | disposition home or self-care (01) ==
LOC: ER 16:33
DX: N20.0 Calculus of kidney (principal); E78.00 Pure hypercholesterolemia, unspecified; E11.9 Type 2 diabetes mellitus without complications; Z90.49 Acquired absence of other specified parts of digestive tract; Z79.82 Long term (current) use of aspirin; Z79.84 Long term (current) use of oral hypoglycemic drugs; Z79.899 Other long term (current) drug therapy
CPT/HCPCS: 36415; 74176; 80053; 81001; 83690; 85025; 96372; 99284; J1885

== ENCOUNTER 2021-04-10 11:03 | Emergency (ER) | payer MEDICAID ==
[~2021-04-10] VITALS: Ht 180.3 cm; Wt 96.2 kg
[~2021-04-10 11:03] MED LIST changes: +IBUP-1985 PO
[2021-04-10 11:11] VITALS: BP 154/78
[2021-04-10] MEDS ORDERED: CIPR10DR LEFT EAR (11:59)
== END 2021-04-10 13:00 | disposition home or self-care (01) ==
LOC: ER 11:04
DX: H61.22 Impacted cerumen, left ear (principal); H60.92 Unspecified otitis externa, left ear; H92.02 Otalgia, left ear; E78.00 Pure hypercholesterolemia, unspecified; E11.9 Type 2 diabetes mellitus without complications; Z90.49 Acquired absence of other specified parts of digestive tract; Z79.82 Long term (current) use of aspirin; Z79.2 Long term (current) use of antibiotics; Z79.899 Other long term (current) drug therapy
CPT/HCPCS: 69209; 99283